=== PATIENT | male | born 1970 | race Caucasian/White ===

== ENCOUNTER 2018-11-15 06:00 | Emergency (ER) | payer OTHER, SELFPAY ==
[2018-11-15 05:58] VITALS: BP 170/102; PULSE 77; RESP 15; TEMP 36.7; O2SAT 98; BMI 25.8
--- NOTE | 2018-11-15 06:05 | DI.CT.S_ITS ---
PROCEDURE: CT HEAD/BRAIN WO CON INDICATIONS: headache ,blurry vision ,ataxia TECHNIQUE: Noncontrast 4.5 mm thick angled axial sections acquired from the foramen magnum to the vertex, with coronal and sagittal reformats. For radiation dose reduction, the following was used: automated exposure control, adjustment of mA and/or kV according to patient size. COMPARISON: None. FINDINGS: Image quality: Excellent. CSF spaces: Basal cisterns are patent. No extra-axial fluid collections. Ventricles are normal in size and shape. Brain: No midline shift. No intracranial masses or hemorrhage. [place]-white matter interface is normal. Skull and face: Calvarium and visualized facial bones are intact, without suspicious lesions. Sinuses: Visualized sinuses and mastoids are clear. IMPRESSION: 1. No acute intracranial abnormalities. No significant discrepancy with the stable hand radiology preliminary report. Dictated by: Matthieu Waite M.D. on 11/15/2018 at 7:43 Approved by: Matthieu Waite M.D. on 11/15/2018 at 7:45
[2018-11-15 06:19] LABS: INR 0.9 (0.9-1.3); Prothrombin Time 10.8 SECONDS (10.1-12.7)
[2018-11-15 06:21] LABS: PTT Partial Thromboplastin Tim 32 SECONDS (26.4-36.2)
[2018-11-15 06:23] LABS: Add Manual Diff / Slide Review NO; Basophils Absolute Auto 100 /uL (0-100); Basophils Percent Auto 0.8 % (0-2); Eosinophils Absolute Auto 100 /uL (0-450); Hematocrit 44.9 % (41-53); Hemoglobin 15.7 g/dL (13.5-17.5); Lymphocytes Absolute Auto 2200 /uL (1100-4500); Lymphocytes Percent Auto 25.1 % (25-40); Mean Corpuscular Volume 88.6 fL (80-100); Monocytes Absolute Auto 600 /uL (0-900); Monocytes Percent Auto 6.9 % (3-14); Neutrophils Absolute Auto 5800 /uL (1500-7000); Neutrophils Percent Auto 66.2 % (50-75); Platelet Count 254 X10^3/uL (150-400); Red Blood Cell Count 5.07 X10^6/uL (4.5-5.9); Red Cell Distribution Width 13.4 % (11.6-14.8); White Blood Cell Count 8.8 X10^3/uL (4.5-11.0)
[2018-11-15] MEDS: SODIUM CHLORIDE 0.9% 1,000 ML 1000 ML IV (06:26)
[2018-11-15] MEDS: KETOROLAC 60 MG/2 ML VIAL 30 MG IV (06:26)
[2018-11-15] MEDS: ONDANSETRON 4 MG/2 ML INJ IV (06:26)
[2018-11-15 06:32] LABS: Alanine Aminotransferase 24 IU/L (21-72); Albumin 4.4 g/dL (3.5-5.0); Albumin Globulin Ratio 1.4 (1.0-2.8); Alkaline Phosphatase 66 U/L (38-126); Aspartate Aminotransferase 20 IU/L (17-59); BUN Creatinine Ratio 17.8 (6-22); Bilirubin Total 0.5 mg/dL (0.2-1.3); Blood Urea Nitrogen 16 mg/dL (9-20); Calcium 9.3 mg/dL (8.4-10.2); Carbon Dioxide 27 mmol/L (22-32); Chloride 99 mmol/L (98-107); Estimated Glomerular Filt Rate > 60.0 mL/min (>60); Ethanol (ETOH) < 10 mg/dL; Globulin 3.2 g/dL (1.7-4.1); Glucose 128 mg/dL (70-100); HEMOLYSIS 30 (0-50); Potassium 4.2 mmol/L (3.4-5.1); Sodium 136 mmol/L (137-145); Total Protein 7.6 g/dL (6.3-8.2)
--- NOTE | 2018-11-15 06:42 | ED.GENADULT ---
HPI - General Adult <Simi Hirsch DO - Last Filed: 11/15/18 21:20> General Chief complaint: Hypertension Stated complaint: Blurred vision Time Seen by Provider: 11/15/18 06:03 Source: patient and EMS Mode of arrival: EMS Limitations: no limitations History of Present Illness HPI narrative: The patient is a 47-year-old male who presents with headache and blurred vision. [place] he was having some vision difficulties. EMS initially reported blood pressure the systolic in the 200. Patient does state that he has hypertension. He is not sure what medication he takes but he thinks he took it yesterday but has not yet taken today's dose. He said this headache started while he was at a machine he thinks he was sitting at that machine for about an hour. He has not been up all night. He does admit to having 2 drinks of alcohol yesterday and he stopped drinking at 4:00 p.m.. He does seem to be a bit unsteady on his feet. He also admits that he may have smoked methamphetamine yesterday as well. He had some weakness in both arms but he thinks that that is improving. No numbness or tingling. Related Data Allergies Allergy/AdvReac Type Severity Reaction Status Date / Time Iodinated Contrast- Oral and Allergy Verified 11/15/18 06:49 IV Dye gabapentin [From Neurontin] AdvReac Verified 11/15/18 06:49 Review of Systems <Simi Hirsch DO - Last Filed: 11/15/18 21:20> Review of Systems ROS Unobtainable: All systems reviewed & are unremarkable except as noted in HPI and below Constitutional Denies chills, Denies fever(s), Reports headache(s), Denies lethargy and Denies weakness Eyes Reports blurry vision ENT Ears, Nose, Mouth, and Throat: Denies dizziness and Reports headache(s) Cardiovascular Denies chest pain, Denies irregular heart rhythm, Denies lightheadedness, Denies palpitations, Denies dyspnea, Denies dyspnea on exertion and Denies orthopnea Respiratory Denies cough, Denies dyspnea, Denies dyspnea on exertion and Denies wheezing Gastrointestinal Gastrointestinal: Denies abdominal pain, Denies change in bowel habits, Denies diarrhea, Denies nausea and Denies vomiting Musculoskeletal Denies back pain, Denies muscle weakness, Denies numbness and Denies tingling Integumentary/Breasts Denies pruritus, Denies erythema, Denies rash and Denies wounds Neurologic Denies dizziness, Reports headache(s), Denies numbness, Denies tingling and Denies weakness Endocrine Denies palpitations Allergic/Immunologic Denies wheezing Exam <Simi Hirsch DO - Last Filed: 11/15/18 21:20> Initial Vital Signs Initial Vital Signs: Vital Signs Temperature 98.1 F 11/15/18 05:58 Pulse Rate 77 11/15/18 05:58 Respiratory Rate 15 11/15/18 05:58 Blood Pressure 170/102 H 11/15/18 05:58 Pulse Oximetry 98 11/15/18 05:58 GENERAL: Well-appearing, well-nourished and in no acute distress. HEENT: Head atraumatic,EOMI, pupils reactive, face symmetric CARDIOVASCULAR: Regular rate and rhythm without murmurs, rubs or gallops. RESPIRATORY: Breath sounds equal bilaterally, no wheezes rales or rhonchi. ABDOMEN: Soft, nontender. Normoactive bowel sounds all 4 quadrants. No guarding or rebound. EXTREMITIES: Normal range of motion, no clubbing or edema. Neurovascularly intact NEUROLOGICAL: Alert and oriented x4.Normal gait and speech. Cranial nerves II through XII grossly intact. Specimen Boss strength equal bilaterally some ataxia noted in left arm but no other extremities. SKIN: Warm, dry, no laceration, no petechiae, no rashes or lesions. <Xander Cristina, DO - Last Filed: 11/15/18 07:52> Initial Vital Signs Initial Vital Signs: Vital Signs Temperature 98.1 F 11/15/18 05:58 Pulse Rate 77 11/15/18 05:58 Respiratory Rate 15 11/15/18 05:58 Blood Pressure 170/102 H 11/15/18 05:58 Pulse Oximetry 98 11/15/18 05:58 Scores <Simi Hirsch DO - Last Filed: 11/15/18 21:20> NIH Stroke Scale Level of Conciousness: Alert, keenly responsive Ask month/age: Answers both questions correctly. Open/close eyes, close hand: Performs both tasks correctly Best gaze horizontal: Normal Visual uriostegui: No visual loss Facial palsy: Normal symetrical movement Left arm drift: No drift for full 10 sec Right arm drift: No drift for full 10 sec Left leg drift: No drift for full 10 sec Right leg drift: No drift for full 10 sec Limb ataxia: Absent Sensory on face/arms/legs: Normal, no sensory loss Best language: No aphasia, normal Dysarthria: Normal Extinction or inattention: No abnormality Total NIH Stroke scale score: 0 Course <Simi Hirsch DO - Last Filed: 11/15/18 21:20> Orders Ordered: Discontinued Medications Sodium Chloride (Normal Saline 0.9%) 1,000 mls @ 1,000 mls/hr IV CONT DANO Last Infusion: 11/15/18 07:47 Dose: 0 mls/hr Admin: 11/15/18 06:26 Dose: 1,000 mls/hr Ketorolac Tromethamine (Toradol) 30 mg IV NOW ONE Stop: 11/15/18 06:14 Last Admin: 11/15/18 06:26 Dose: 30 mg Lisinopril (Zestril) 10 mg PO NOW ONE Stop: 11/15/18 06:59 Last Admin: 11/15/18 07:28 Dose: 10 mg Ondansetron HCl (Zofran) 4 mg IV NOW ONE Stop: 11/15/18 06:05 Last Admin: 11/15/18 06:26 Dose: 4 mg Vital Signs - 8 hr 11/15/18 05:58 11/15/18 06:43 11/15/18 07:28 Temperature 98.1 F Pulse Rate 77 81 74 Respiratory Rate 15 15 Blood Pressure 170/102 H 146/100 H Blood Pressure [Right Arm] 166/104 H Pulse Oximetry 98 100 <Xander Cristina DO - Last Filed: 11/15/18 07:52> Orders Ordered: Discontinued Medications Sodium Chloride (Normal Saline 0.9%) 1,000 mls @ 1,000 mls/hr IV CONT DANO Last Infusion: 11/15/18 07:47 Dose: 0 mls/hr Admin: 11/15/18 06:26 Dose: 1,000 mls/hr Ketorolac Tromethamine (Toradol) 30 mg IV NOW ONE Stop: 11/15/18 06:14 Last Admin: 11/15/18 06:26 Dose: 30 mg Lisinopril (Zestril) 10 mg PO NOW ONE Stop: 11/15/18 06:59 Last Admin: 11/15/18 07:28 Dose: 10 mg Ondansetron HCl (Zofran) 4 mg IV NOW ONE Stop: 11/15/18 06:05 Last Admin: 11/15/18 06:26 Dose: 4 mg Vital Signs - 8 hr 11/15/18 05:58 11/15/18 06:43 11/15/18 07:28 Temperature 98.1 F Pulse Rate 77 81 74 Respiratory Rate 15 15 Blood Pressure 170/102 H 146/100 H Blood Pressure [Right Arm] 166/104 H Pulse Oximetry 98 100 Medical Decision Making <Simi Hirsch, - Last Filed: 11/15/18 21:20> Lab Data Lab results reviewed: Yes I reviewed the patient's lab results. Result diagrams: 11/15/18 05:50 11/15/18 05:50 Lab Results 11/15/18 11/15/18 11/15/18 Range/Units 05:50 05:50 05:50 WBC 8.8 (4.5-11.0) X10^3/uL RBC 5.07 (4.5-5.9) X10^6/uL Hgb 15.7 (13.5-17.5) g/dL Hct 44.9 (41-53) % MCV 88.6 (80-100) fL MCH 31.0 (26-34) PG MCHC 35.0 (30-36) % RDW 13.4 (11.6-14.8) % Plt Count 254 (150-400) X10^3/uL Neut % (Auto) 66.2 (50-75) % Lymph % (Auto) 25.1 (25-40) % [place] % (Auto) 6.9 (3-14) % Eos % (Auto) 1.0 L (2-4) % Baso % (Auto) 0.8 (0-2) % Neut # (Auto) 5800 (4278-3207) /uL Lymph # (Auto) 2200 (9855-3514) /uL [place] # (Auto) 600 (0-900) /uL Eos # (Auto) 100 (0-450) /uL Baso # (Auto) 100 (0-100) /uL PT 10.8 (10.1-12.7) SECONDS INR 0.9 (0.9-1.3) APTT 32 (26.4-36.2) SECONDS Sodium 136 L (137-145) mmol/L Potassium 4.2 (3.4-5.1) mmol/L Chloride 99 (98-107) mmol/L Carbon Dioxide 27 (22-32) mmol/L BUN 16 (9-20) mg/dL Creatinine 0.90 (0.66-1.25) mg/dL Estimated GFR > 60.0 (>60) mL/min BUN/Creatinine Ratio 17.8 (6-22) Glucose 128 H (70-100) mg/dL Calcium 9.3 (8.4-10.2) mg/dL Total Bilirubin 0.5 (0.2-1.3) mg/dL AST 20 (17-59) IU/L ALT 24 (21-72) IU/L Alkaline Phosphatase 66 (38-126) U/L Total Protein 7.6 (6.3-8.2) g/dL Albumin 4.4 (3.5-5.0) g/dL Globulin 3.2 (1.7-4.1) g/dL Albumin/Globulin Ratio 1.4 (1.0-2.8) Urine RBC (0-5/HPF) Urine WBC (0-5/HPF) Urine Bacteria (None) Ur Culture Indicated? Urine Opiates Screen (Negative) Ur Oxycodone Screen (Negative) Urine Methadone Screen (Negative) Ur Barbiturates Screen (Negative) U Tricyclic Antidepress (Negative) Ur Phencyclidine Scrn (Negative) Ur Amphetamines Screen (Negative) U Methamphetamines Scrn (Negative) Ur MDMA Scrn (Ecstasy) (Negative) U Benzodiazepines Scrn (Negative) Urine Cocaine Screen (Negative) U Marijuana (THC) Screen (Negative) Ethyl Alcohol < 10 mg/dL 11/15/18 11/15/18 Range/Units 06:42 06:42 WBC (4.5-11.0) X10^3/uL RBC (4.5-5.9) X10^6/uL Hgb (13.5-17.5) g/dL Hct (41-53) % MCV (80-100) fL MCH (26-34) PG MCHC (30-36) % RDW (11.6-14.8) % Plt Count (150-400) X10^3/uL Neut % (Auto) (50-75) % Lymph % (Auto) (25-40) % [place] % (Auto) (3-14) % Eos % (Auto) (2-4) % Baso % (Auto) (0-2) % Neut # (Auto) (2264-6533) /uL Lymph # (Auto) (5683-6212) /uL [place] # (Auto) (0-900) /uL Eos # (Auto) (0-450) /uL Baso # (Auto) (0-100) /uL PT (10.1-12.7) SECONDS INR (0.9-1.3) APTT (26.4-36.2) SECONDS Sodium (137-145) mmol/L Potassium (3.4-5.1) mmol/L Chloride (98-107) mmol/L Carbon Dioxide (22-32) mmol/L BUN (9-20) mg/dL Creatinine (0.66-1.25) mg/dL Estimated GFR (>60) mL/min BUN/Creatinine Ratio (6-22) Glucose (70-100) mg/dL Calcium (8.4-10.2) mg/dL Total Bilirubin (0.2-1.3) mg/dL AST (17-59) IU/L ALT (21-72) IU/L Alkaline Phosphatase (38-126) U/L Total Protein (6.3-8.2) g/dL Albumin (3.5-5.0) g/dL Globulin (1.7-4.1) g/dL Albumin/Globulin Ratio (1.0-2.8) Urine RBC 0-1/hpf (0-5/HPF) Urine WBC 0-1/hpf (0-5/HPF) Urine Bacteria Occasional (0-1) (None) Ur Culture Indicated? Cult not indicated Urine Opiates Screen Negative (Negative) Ur Oxycodone Screen Negative (Negative) Urine Methadone Screen Negative (Negative) Ur Barbiturates Screen Negative (Negative) U Tricyclic Antidepress Negative (Negative) Ur Phencyclidine Scrn Negative (Negative) Ur Amphetamines Screen Positive H (Negative) U Methamphetamines Scrn Positive H (Negative) Ur MDMA Scrn (Ecstasy) Negative (Negative) U Benzodiazepines Scrn Negative (Negative) Urine Cocaine Screen Negative (Negative) U Marijuana (THC) Screen Negative (Negative) Ethyl Alcohol mg/dL Urine Dip Bedside Urine Glucose Negative Bedside Urine Bilirubin - Negative Bedside Urine Ketone - Negative Urine Specific [place] 1.015 Bedside Urine Occult Blood +/- Bedside Urine pH 6.0 Bedside Urine Protein - Negative Bedside Urine Urobilinogen - Negative Bedside Urine Nitrite - Negative Bedside Urine Leukocytes - Negative Esterase Point of care testing: Urine Dip Bedside Urine Glucose Negative Bedside Urine Bilirubin - Negative Bedside Urine Ketone - Negative Urine Specific [place] 1.015 Bedside Urine Occult Blood +/- Bedside Urine pH 6.0 Bedside Urine Protein - Negative Bedside Urine Urobilinogen - Negative Bedside Urine Nitrite - Negative Bedside Urine Leukocytes - Negative Esterase Imaging Data CT scan - head: Radiologist's impression: Patient report: No acute intracranial process ECG Data Attestation: I personally reviewed and interpreted this ECG as follows: Prior ECG tracings: not available for review Interpretation: Normal sinus rhythm rate [address] changes no T-wave inversions MDM Narrative Medical decision making narrative: The patient headache is improving. Vision is also improving. Blood pressure has improved from EMS initial blood pressure however it is still elevated. He is due for his morning lisinopril. signed out to day shift provider anticipate discharge soon. <Xander Cristina, DO - Last Filed: 11/15/18 07:52> Lab Data Lab results reviewed: Yes I reviewed the patient's lab results. Lab Results 11/15/18 11/15/18 11/15/18 Range/Units 05:50 05:50 05:50 WBC 8.8 (4.5-11.0) X10^3/uL RBC 5.07 (4.5-5.9) X10^6/uL Hgb 15.7 (13.5-17.5) g/dL Hct 44.9 (41-53) % MCV 88.6 (80-100) fL MCH 31.0 (26-34) PG MCHC 35.0 (30-36) % RDW 13.4 (11.6-14.8) % Plt Count 254 (150-400) X10^3/uL Neut % (Auto) 66.2 (50-75) % Lymph % (Auto) 25.1 (25-40) % [place] % (Auto) 6.9 (3-14) % Eos % (Auto) 1.0 L (2-4) % Baso % (Auto) 0.8 (0-2) % Neut # (Auto) 5800 (1545-9253) /uL Lymph # (Auto) 2200 (2517-9369) /uL [place] # (Auto) 600 (0-900) /uL Eos # (Auto) 100 (0-450) /uL Baso # (Auto) 100 (0-100) /uL PT 10.8 (10.1-12.7) SECONDS INR 0.9 (0.9-1.3) APTT 32 (26.4-36.2) SECONDS Sodium 136 L (137-145) mmol/L Potassium 4.2 (3.4-5.1) mmol/L Chloride 99 (98-107) mmol/L Carbon Dioxide 27 (22-32) mmol/L BUN 16 (9-20) mg/dL Creatinine 0.90 (0.66-1.25) mg/dL Estimated GFR > 60.0 (>60) mL/min BUN/Creatinine Ratio 17.8 (6-22) Glucose 128 H (70-100) mg/dL Calcium 9.3 (8.4-10.2) mg/dL Total Bilirubin 0.5 (0.2-1.3) mg/dL AST 20 (17-59) IU/L ALT 24 (21-72) IU/L Alkaline Phosphatase 66 (38-126) U/L Total Protein 7.6 (6.3-8.2) g/dL Albumin 4.4 (3.5-5.0) g/dL Globulin 3.2 (1.7-4.1) g/dL Albumin/Globulin Ratio 1.4 (1.0-2.8) Urine RBC (0-5/HPF) Urine WBC (0-5/HPF) Urine Bacteria (None) Ur Culture Indicated? Urine Opiates Screen (Negative) Ur Oxycodone Screen (Negative) Urine Methadone Screen (Negative) Ur Barbiturates Screen (Negative) U Tricyclic Antidepress (Negative) Ur Phencyclidine Scrn (Negative) Ur Amphetamines Screen (Negative) U Methamphetamines Scrn (Negative) Ur MDMA Scrn (Ecstasy) (Negative) U Benzodiazepines Scrn (Negative) Urine Cocaine Screen (Negative) U Marijuana (THC) Screen (Negative) Ethyl Alcohol < 10 mg/dL 11/15/18 11/15/18 Range/Units 06:42 06:42 WBC (4.5-11.0) X10^3/uL RBC (4.5-5.9) X10^6/uL Hgb (13.5-17.5) g/dL Hct (41-53) % MCV (80-100) fL MCH (26-34) PG MCHC (30-36) % RDW (11.6-14.8) % Plt Count (150-400) X10^3/uL Neut % (Auto) (50-75) % Lymph % (Auto) (25-40) % [place] % (Auto) (3-14) % Eos % (Auto) (2-4) % Baso % (Auto) (0-2) % Neut # (Auto) (9888-3501) /uL Lymph # (Auto) (1115-0621) /uL [place] # (Auto) (0-900) /uL Eos # (Auto) (0-450) /uL Baso # (Auto) (0-100) /uL PT (10.1-12.7) SECONDS INR (0.9-1.3) APTT (26.4-36.2) SECONDS Sodium (137-145) mmol/L Potassium (3.4-5.1) mmol/L Chloride (98-107) mmol/L Carbon Dioxide (22-32) mmol/L BUN (9-20) mg/dL Creatinine (0.66-1.25) mg/dL Estimated GFR (>60) mL/min BUN/Creatinine Ratio (6-22) Glucose (70-100) mg/dL Calcium (8.4-10.2) mg/dL Total Bilirubin (0.2-1.3) mg/dL AST (17-59) IU/L ALT (21-72) IU/L Alkaline Phosphatase (38-126) U/L Total Protein (6.3-8.2) g/dL Albumin (3.5-5.0) g/dL Globulin (1.7-4.1) g/dL Albumin/Globulin Ratio (1.0-2.8) Urine RBC 0-1/hpf (0-5/HPF) Urine WBC 0-1/hpf (0-5/HPF) Urine Bacteria Occasional (0-1) (None) Ur Culture Indicated? Cult not indicated Urine Opiates Screen Negative (Negative) Ur Oxycodone Screen Negative (Negative) Urine Methadone Screen Negative (Negative) Ur Barbiturates Screen Negative (Negative) U Tricyclic Antidepress Negative (Negative) Ur Phencyclidine Scrn Negative (Negative) Ur Amphetamines Screen Positive H (Negative) U Methamphetamines Scrn Positive H (Negative) Ur MDMA Scrn (Ecstasy) Negative (Negative) U Benzodiazepines Scrn Negative (Negative) Urine Cocaine Screen Negative (Negative) U Marijuana (THC) Screen Negative (Negative) Ethyl Alcohol mg/dL Urine Dip Bedside Urine Glucose Negative Bedside Urine Bilirubin - Negative Bedside Urine Ketone - Negative Urine Specific [place] 1.015 Bedside Urine Occult Blood +/- Bedside Urine pH 6.0 Bedside Urine Protein - Negative Bedside Urine Urobilinogen - Negative Bedside Urine Nitrite - Negative Bedside Urine Leukocytes - Negative Esterase Point of care testing: Urine Dip Bedside Urine Glucose Negative Bedside Urine Bilirubin - Negative Bedside Urine Ketone - Negative Urine Specific [place] 1.015 Bedside Urine Occult Blood +/- Bedside Urine pH 6.0 Bedside Urine Protein - Negative Bedside Urine Urobilinogen - Negative Bedside Urine Nitrite - Negative Bedside Urine Leukocytes - Negative Esterase MDM Narrative Medical decision making narrative: Review patient's medical record. Perform my own history and physical. Patient reports a much improvement in his symptoms. He did receive lisinopril here in the emergency department. We had a discussion about blood pressure. He does have a follow-up with his primary doctor at the end of this month. We discussed the importance of taking his blood pressure at home. We discussed return precautions. Did not find any end-organ dysfunction secondary to his elevated pressure. Patient expressed understanding and agreement plan. Discharge Plan Departure Patient Disposition: Home Clinical Impression: Hypertension, Headache Discharge Date/Time: 11/15/18 08:10 Interventions: ED Discharge Assessment Last Done: 11/15/18 08:10 Activity Restrictions/Additional Instructions: *You have been diagnosed with hypertension, headache *What to do: May need blood pressure medication adjustment of please discuss this with her primary care provider *Continue to take medications as directed *Follow up with your primary care provider in 2-3 days *Return to ER if you should have weakness, numbness, tingling or any new, worsening or concerning symptoms
[2018-11-15 06:43] VITALS: BP 166/104; PULSE 81; RESP 15; O2SAT 100
--- NOTE | 2018-11-15 06:46 | ED_ITS ---
HPI - General Adult <Simi Hirsch DO - Last Filed: 11/15/18 21:20> General Chief complaint: Hypertension Stated complaint: Blurred vision Time Seen by Provider: 11/15/18 06:03 Source: patient and EMS Mode of arrival: EMS Limitations: no limitations History of Present Illness HPI narrative: The patient is a 47-year-old male who presents with headache and blurred vision. [place] he was having some vision difficulties. EMS initially reported blood pressure the systolic in the 200. Patient does state that he has hypertension. He is not sure what medication he takes but he thinks he took it yesterday but has not yet taken today's dose. He said this headache started while he was at a machine he thinks he was sitting at that machine for about an hour. He has not been up all night. He does admit to having 2 drinks of alcohol yesterday and he stopped drinking at 4:00 p.m.. He does seem to be a bit unsteady on his feet. He also admits that he may have smoked methamphetamine yesterday as well. He had some weakness in both arms but he thinks that that is improving. No numbness or tingling. Related Data Allergies Allergy/AdvReac Type Severity Reaction Status Date / Time Iodinated Contrast- Oral and Allergy Verified 11/15/18 06:49 IV Dye gabapentin [From Neurontin] AdvReac Verified 11/15/18 06:49 Review of Systems <Simi Hirsch DO - Last Filed: 11/15/18 21:20> Review of Systems ROS Unobtainable: All systems reviewed & are unremarkable except as noted in HPI and below Constitutional Denies chills, Denies fever(s), Reports headache(s), Denies lethargy and Denies weakness Eyes Reports blurry vision ENT Ears, Nose, Mouth, and Throat: Denies dizziness and Reports headache(s) Cardiovascular Denies chest pain, Denies irregular heart rhythm, Denies lightheadedness, Denies palpitations, Denies dyspnea, Denies dyspnea on exertion and Denies orthopnea Respiratory Denies cough, Denies dyspnea, Denies dyspnea on exertion and Denies wheezing Gastrointestinal Gastrointestinal: Denies abdominal pain, Denies change in bowel habits, Denies diarrhea, Denies nausea and Denies vomiting Musculoskeletal Denies back pain, Denies muscle weakness, Denies numbness and Denies tingling Integumentary/Breasts Denies pruritus, Denies erythema, Denies rash and Denies wounds Neurologic Denies dizziness, Reports headache(s), Denies numbness, Denies tingling and Denies weakness Endocrine Denies palpitations Allergic/Immunologic Denies wheezing Exam <Simi Hirsch DO - Last Filed: 11/15/18 21:20> Initial Vital Signs Initial Vital Signs: Vital Signs Temperature 98.1 F 11/15/18 05:58 Pulse Rate 77 11/15/18 05:58 Respiratory Rate 15 11/15/18 05:58 Blood Pressure 170/102 H 11/15/18 05:58 Pulse Oximetry 98 11/15/18 05:58 GENERAL: Well-appearing, well-nourished and in no acute distress. HEENT: Head atraumatic,EOMI, pupils reactive, face symmetric CARDIOVASCULAR: Regular rate and rhythm without murmurs, rubs or gallops. RESPIRATORY: Breath sounds equal bilaterally, no wheezes rales or rhonchi. ABDOMEN: Soft, nontender. Normoactive bowel sounds all 4 quadrants. No guarding or rebound. EXTREMITIES: Normal range of motion, no clubbing or edema. Neurovascularly intact NEUROLOGICAL: Alert and oriented x4.Normal gait and speech. Cranial nerves II through XII grossly intact. [employer] strength equal bilaterally some ataxia noted in left arm but no other extremities. SKIN: Warm, dry, no laceration, no petechiae, no rashes or lesions. <Xander Cristina, DO - Last Filed: 11/15/18 07:52> Initial Vital Signs Initial Vital Signs: Vital Signs Temperature 98.1 F 11/15/18 05:58 Pulse Rate 77 11/15/18 05:58 Respiratory Rate 15 11/15/18 05:58 Blood Pressure 170/102 H 11/15/18 05:58 Pulse Oximetry 98 11/15/18 05:58 Scores <Simi Hirsch DO - Last Filed: 11/15/18 21:20> NIH Stroke Scale Level of Conciousness: Alert, keenly responsive Ask month/age: Answers both questions correctly. Open/close eyes, close hand: Performs both tasks correctly Best gaze horizontal: Normal Visual uriostegui: No visual loss Facial palsy: Normal symetrical movement Left arm drift: No drift for full 10 sec Right arm drift: No drift for full 10 sec Left leg drift: No drift for full 10 sec Right leg drift: No drift for full 10 sec Limb ataxia: Absent Sensory on face/arms/legs: Normal, no sensory loss Best language: No aphasia, normal Dysarthria: Normal Extinction or inattention: No abnormality Total NIH Stroke scale score: 0 Course <Simi Hirsch DO - Last Filed: 11/15/18 21:20> Orders Ordered: Discontinued Medications Sodium Chloride (Normal Saline 0.9%) 1,000 mls @ 1,000 mls/hr IV CONT DANO Last Infusion: 11/15/18 07:47 Dose: 0 mls/hr Admin: 11/15/18 06:26 Dose: 1,000 mls/hr Ketorolac Tromethamine (Toradol) 30 mg IV NOW ONE Stop: 11/15/18 06:14 Last Admin: 11/15/18 06:26 Dose: 30 mg Lisinopril (Zestril) 10 mg PO NOW ONE Stop: 11/15/18 06:59 Last Admin: 11/15/18 07:28 Dose: 10 mg Ondansetron HCl (Zofran) 4 mg IV NOW ONE Stop: 11/15/18 06:05 Last Admin: 11/15/18 06:26 Dose: 4 mg Vital Signs - 8 hr 11/15/18 05:58 11/15/18 06:43 11/15/18 07:28 Temperature 98.1 F Pulse Rate 77 81 74 Respiratory Rate 15 15 Blood Pressure 170/102 H 146/100 H Blood Pressure [Right Arm] 166/104 H Pulse Oximetry 98 100 <Xander Cristina DO - Last Filed: 11/15/18 07:52> Orders Ordered: Discontinued Medications Sodium Chloride (Normal Saline 0.9%) 1,000 mls @ 1,000 mls/hr IV CONT DANO Last Infusion: 11/15/18 07:47 Dose: 0 mls/hr Admin: 11/15/18 06:26 Dose: 1,000 mls/hr Ketorolac Tromethamine (Toradol) 30 mg IV NOW ONE Stop: 11/15/18 06:14 Last Admin: 11/15/18 06:26 Dose: 30 mg Lisinopril (Zestril) 10 mg PO NOW ONE Stop: 11/15/18 06:59 Last Admin: 11/15/18 07:28 Dose: 10 mg Ondansetron HCl (Zofran) 4 mg IV NOW ONE Stop: 11/15/18 06:05 Last Admin: 11/15/18 06:26 Dose: 4 mg Vital Signs - 8 hr 11/15/18 05:58 11/15/18 06:43 11/15/18 07:28 Temperature 98.1 F Pulse Rate 77 81 74 Respiratory Rate 15 15 Blood Pressure 170/102 H 146/100 H Blood Pressure [Right Arm] 166/104 H Pulse Oximetry 98 100 Medical Decision Making <Simi Hirsch, - Last Filed: 11/15/18 21:20> Lab Data Lab results reviewed: Yes I reviewed the patient's lab results. Result diagrams: 11/15/18 05:50 11/15/18 05:50 Lab Results 11/15/18 11/15/18 11/15/18 Range/Units 05:50 05:50 05:50 WBC 8.8 (4.5-11.0) X10^3/uL RBC 5.07 (4.5-5.9) X10^6/uL Hgb 15.7 (13.5-17.5) g/dL Hct 44.9 (41-53) % MCV 88.6 (80-100) fL MCH 31.0 (26-34) PG MCHC 35.0 (30-36) % RDW 13.4 (11.6-14.8) % Plt Count 254 (150-400) X10^3/uL Neut % (Auto) 66.2 (50-75) % Lymph % (Auto) 25.1 (25-40) % [place] % (Auto) 6.9 (3-14) % Eos % (Auto) 1.0 L (2-4) % Baso % (Auto) 0.8 (0-2) % Neut # (Auto) 5800 (4190-2916) /uL Lymph # (Auto) 2200 (1006-3983) /uL [place] # (Auto) 600 (0-900) /uL Eos # (Auto) 100 (0-450) /uL Baso # (Auto) 100 (0-100) /uL PT 10.8 (10.1-12.7) SECONDS INR 0.9 (0.9-1.3) APTT 32 (26.4-36.2) SECONDS Sodium 136 L (137-145) mmol/L Potassium 4.2 (3.4-5.1) mmol/L Chloride 99 (98-107) mmol/L Carbon Dioxide 27 (22-32) mmol/L BUN 16 (9-20) mg/dL Creatinine 0.90 (0.66-1.25) mg/dL Estimated GFR > 60.0 (>60) mL/min BUN/Creatinine Ratio 17.8 (6-22) Glucose 128 H (70-100) mg/dL Calcium 9.3 (8.4-10.2) mg/dL Total Bilirubin 0.5 (0.2-1.3) mg/dL AST 20 (17-59) IU/L ALT 24 (21-72) IU/L Alkaline Phosphatase 66 (38-126) U/L Total Protein 7.6 (6.3-8.2) g/dL Albumin 4.4 (3.5-5.0) g/dL Globulin 3.2 (1.7-4.1) g/dL Albumin/Globulin Ratio 1.4 (1.0-2.8) Urine RBC (0-5/HPF) Urine WBC (0-5/HPF) Urine Bacteria (None) Ur Culture Indicated? Urine Opiates Screen (Negative) Ur Oxycodone Screen (Negative) Urine Methadone Screen (Negative) Ur Barbiturates Screen (Negative) U Tricyclic Antidepress (Negative) Ur Phencyclidine Scrn (Negative) Ur Amphetamines Screen (Negative) U Methamphetamines Scrn (Negative) Ur MDMA Scrn (Ecstasy) (Negative) U Benzodiazepines Scrn (Negative) Urine Cocaine Screen (Negative) U Marijuana (THC) Screen (Negative) Ethyl Alcohol < 10 mg/dL 11/15/18 11/15/18 Range/Units 06:42 06:42 WBC (4.5-11.0) X10^3/uL RBC (4.5-5.9) X10^6/uL Hgb (13.5-17.5) g/dL Hct (41-53) % MCV (80-100) fL MCH (26-34) PG MCHC (30-36) % RDW (11.6-14.8) % Plt Count (150-400) X10^3/uL Neut % (Auto) (50-75) % Lymph % (Auto) (25-40) % [place] % (Auto) (3-14) % Eos % (Auto) (2-4) % Baso % (Auto) (0-2) % Neut # (Auto) (3509-4418) /uL Lymph # (Auto) (7055-6787) /uL [place] # (Auto) (0-900) /uL Eos # (Auto) (0-450) /uL Baso # (Auto) (0-100) /uL PT (10.1-12.7) SECONDS INR (0.9-1.3) APTT (26.4-36.2) SECONDS Sodium (137-145) mmol/L Potassium (3.4-5.1) mmol/L Chloride (98-107) mmol/L Carbon Dioxide (22-32) mmol/L BUN (9-20) mg/dL Creatinine (0.66-1.25) mg/dL Estimated GFR (>60) mL/min BUN/Creatinine Ratio (6-22) Glucose (70-100) mg/dL Calcium (8.4-10.2) mg/dL Total Bilirubin (0.2-1.3) mg/dL AST (17-59) IU/L ALT (21-72) IU/L Alkaline Phosphatase (38-126) U/L Total Protein (6.3-8.2) g/dL Albumin (3.5-5.0) g/dL Globulin (1.7-4.1) g/dL Albumin/Globulin Ratio (1.0-2.8) Urine RBC 0-1/hpf (0-5/HPF) Urine WBC 0-1/hpf (0-5/HPF) Urine Bacteria Occasional (0-1) (None) Ur Culture Indicated? Cult not indicated Urine Opiates Screen Negative (Negative) Ur Oxycodone Screen Negative (Negative) Urine Methadone Screen Negative (Negative) Ur Barbiturates Screen Negative (Negative) U Tricyclic Antidepress Negative (Negative) Ur Phencyclidine Scrn Negative (Negative) Ur Amphetamines Screen Positive H (Negative) U Methamphetamines Scrn Positive H (Negative) Ur MDMA Scrn (Ecstasy) Negative (Negative) U Benzodiazepines Scrn Negative (Negative) Urine Cocaine Screen Negative (Negative) U Marijuana (THC) Screen Negative (Negative) Ethyl Alcohol mg/dL Urine Dip Bedside Urine Glucose Negative Bedside Urine Bilirubin - Negative Bedside Urine Ketone - Negative Urine Specific [place] 1.015 Bedside Urine Occult Blood +/- Bedside Urine pH 6.0 Bedside Urine Protein - Negative Bedside Urine Urobilinogen - Negative Bedside Urine Nitrite - Negative Bedside Urine Leukocytes - Negative Esterase Point of care testing: Urine Dip Bedside Urine Glucose Negative Bedside Urine Bilirubin - Negative Bedside Urine Ketone - Negative Urine Specific [place] 1.015 Bedside Urine Occult Blood +/- Bedside Urine pH 6.0 Bedside Urine Protein - Negative Bedside Urine Urobilinogen - Negative Bedside Urine Nitrite - Negative Bedside Urine Leukocytes - Negative Esterase Imaging Data CT scan - head: Radiologist's impression: Patient report: No acute intracranial process ECG Data Attestation: I personally reviewed and interpreted this ECG as follows: Prior ECG tracings: not available for review Interpretation: Normal sinus rhythm rate [address] changes no T-wave inversions MDM Narrative Medical decision making narrative: The patient headache is improving. Vision is also improving. Blood pressure has improved from EMS initial blood pressure however it is still elevated. He is due for his morning lisinopril. signed out to day shift provider anticipate discharge soon. <Xander Cristina, DO - Last Filed: 11/15/18 07:52> Lab Data Lab results reviewed: Yes I reviewed the patient's lab results. Lab Results 11/15/18 11/15/18 11/15/18 Range/Units 05:50 05:50 05:50 WBC 8.8 (4.5-11.0) X10^3/uL RBC 5.07 (4.5-5.9) X10^6/uL Hgb 15.7 (13.5-17.5) g/dL Hct 44.9 (41-53) % MCV 88.6 (80-100) fL MCH 31.0 (26-34) PG MCHC 35.0 (30-36) % RDW 13.4 (11.6-14.8) % Plt Count 254 (150-400) X10^3/uL Neut % (Auto) 66.2 (50-75) % Lymph % (Auto) 25.1 (25-40) % [place] % (Auto) 6.9 (3-14) % Eos % (Auto) 1.0 L (2-4) % Baso % (Auto) 0.8 (0-2) % Neut # (Auto) 5800 (7353-3851) /uL Lymph # (Auto) 2200 (1424-7925) /uL [place] # (Auto) 600 (0-900) /uL Eos # (Auto) 100 (0-450) /uL Baso # (Auto) 100 (0-100) /uL PT 10.8 (10.1-12.7) SECONDS INR 0.9 (0.9-1.3) APTT 32 (26.4-36.2) SECONDS Sodium 136 L (137-145) mmol/L Potassium 4.2 (3.4-5.1) mmol/L Chloride 99 (98-107) mmol/L Carbon Dioxide 27 (22-32) mmol/L BUN 16 (9-20) mg/dL Creatinine 0.90 (0.66-1.25) mg/dL Estimated GFR > 60.0 (>60) mL/min BUN/Creatinine Ratio 17.8 (6-22) Glucose 128 H (70-100) mg/dL Calcium 9.3 (8.4-10.2) mg/dL Total Bilirubin 0.5 (0.2-1.3) mg/dL AST 20 (17-59) IU/L ALT 24 (21-72) IU/L Alkaline Phosphatase 66 (38-126) U/L Total Protein 7.6 (6.3-8.2) g/dL Albumin 4.4 (3.5-5.0) g/dL Globulin 3.2 (1.7-4.1) g/dL Albumin/Globulin Ratio 1.4 (1.0-2.8) Urine RBC (0-5/HPF) Urine WBC (0-5/HPF) Urine Bacteria (None) Ur Culture Indicated? Urine Opiates Screen (Negative) Ur Oxycodone Screen (Negative) Urine Methadone Screen (Negative) Ur Barbiturates Screen (Negative) U Tricyclic Antidepress (Negative) Ur Phencyclidine Scrn (Negative) Ur Amphetamines Screen (Negative) U Methamphetamines Scrn (Negative) Ur MDMA Scrn (Ecstasy) (Negative) U Benzodiazepines Scrn (Negative) Urine Cocaine Screen (Negative) U Marijuana (THC) Screen (Negative) Ethyl Alcohol < 10 mg/dL 11/15/18 11/15/18 Range/Units 06:42 06:42 WBC (4.5-11.0) X10^3/uL RBC (4.5-5.9) X10^6/uL Hgb (13.5-17.5) g/dL Hct (41-53) % MCV (80-100) fL MCH (26-34) PG MCHC (30-36) % RDW (11.6-14.8) % Plt Count (150-400) X10^3/uL Neut % (Auto) (50-75) % Lymph % (Auto) (25-40) % [place] % (Auto) (3-14) % Eos % (Auto) (2-4) % Baso % (Auto) (0-2) % Neut # (Auto) (6194-6242) /uL Lymph # (Auto) (1058-0641) /uL [place] # (Auto) (0-900) /uL Eos # (Auto) (0-450) /uL Baso # (Auto) (0-100) /uL PT (10.1-12.7) SECONDS INR (0.9-1.3) APTT (26.4-36.2) SECONDS Sodium (137-145) mmol/L Potassium (3.4-5.1) mmol/L Chloride (98-107) mmol/L Carbon Dioxide (22-32) mmol/L BUN (9-20) mg/dL Creatinine (0.66-1.25) mg/dL Estimated GFR (>60) mL/min BUN/Creatinine Ratio (6-22) Glucose (70-100) mg/dL Calcium (8.4-10.2) mg/dL Total Bilirubin (0.2-1.3) mg/dL AST (17-59) IU/L ALT (21-72) IU/L Alkaline Phosphatase (38-126) U/L Total Protein (6.3-8.2) g/dL Albumin (3.5-5.0) g/dL Globulin (1.7-4.1) g/dL Albumin/Globulin Ratio (1.0-2.8) Urine RBC 0-1/hpf (0-5/HPF) Urine WBC 0-1/hpf (0-5/HPF) Urine Bacteria Occasional (0-1) (None) Ur Culture Indicated? Cult not indicated Urine Opiates Screen Negative (Negative) Ur Oxycodone Screen Negative (Negative) Urine Methadone Screen Negative (Negative) Ur Barbiturates Screen Negative (Negative) U Tricyclic Antidepress Negative (Negative) Ur Phencyclidine Scrn Negative (Negative) Ur Amphetamines Screen Positive H (Negative) U Methamphetamines Scrn Positive H (Negative) Ur MDMA Scrn (Ecstasy) Negative (Negative) U Benzodiazepines Scrn Negative (Negative) Urine Cocaine Screen Negative (Negative) U Marijuana (THC) Screen Negative (Negative) Ethyl Alcohol mg/dL Urine Dip Bedside Urine Glucose Negative Bedside Urine Bilirubin - Negative Bedside Urine Ketone - Negative Urine Specific [place] 1.015 Bedside Urine Occult Blood +/- Bedside Urine pH 6.0 Bedside Urine Protein - Negative Bedside Urine Urobilinogen - Negative Bedside Urine Nitrite - Negative Bedside Urine Leukocytes - Negative Esterase Point of care testing: Urine Dip Bedside Urine Glucose Negative Bedside Urine Bilirubin - Negative Bedside Urine Ketone - Negative Urine Specific [place] 1.015 Bedside Urine Occult Blood +/- Bedside Urine pH 6.0 Bedside Urine Protein - Negative Bedside Urine Urobilinogen - Negative Bedside Urine Nitrite - Negative Bedside Urine Leukocytes - Negative Esterase MDM Narrative Medical decision making narrative: Review patient's medical record. Perform my own history and physical. Patient reports a much improvement in his symptoms. He did receive lisinopril here in the emergency department. We had a discussion about blood pressure. He does have a follow-up with his primary doctor at the end of this month. We discussed the importance of taking his blood pressure at home. We discussed return precautions. Did not find any end- organ dysfunction secondary to his elevated pressure. Patient expressed understanding and agreement plan. Discharge Plan Departure Patient Disposition: Home Clinical Impression: Hypertension, Headache Discharge Date/Time: 11/15/18 08:10 Interventions: ED Discharge Assessment Last Done: 11/15/18 08:10 Activity Restrictions/Additional Instructions: *You have been diagnosed with hypertension, headache *What to do: May need blood pressure medication adjustment of please discuss this with her primary care provider *Continue to take medications as directed *Follow up with your primary care provider in 2-3 days *Return to ER if you should have weakness, numbness, tingling or any new, worsening or concerning symptoms
--- NOTE | 2018-11-15 06:57 | PC.NURSE ---
patient reports a headache with tunnel vision that [place] all of a [place] no chest pain or shortness of breath. provider aware.
[2018-11-15 07:00] LABS: Urine Amphetamines Positive (Negative); Urine Barbiturates Negative (Negative); Urine Benzodiazepines Negative (Negative); Urine Cocaine Negative (Negative); Urine MDMA Negative (Negative); Urine Methadone Negative (Negative); Urine Methamphetamines Positive (Negative); Urine Morphine/Opi cutoff 2000 Negative (Negative); Urine Oxycodone Negative (Negative); Urine Phencyclidine Negative (Negative); Urine Tetrahydrocannabinol Negative (Negative); Urine Tricyclic Antidepressant Negative (Negative)
[2018-11-15 07:18] LABS: RBC Urine 0-1/HPF (0-5/HPF)
[2018-11-15 07:19] LABS: Bacteria Urine Occasional (0-1); Culture Indicated Urine Cult Not Indicated; WBC Urine 0-1/HPF (0-5/HPF)
[2018-11-15 07:28] VITALS: BP 146/100; PULSE 74
[2018-11-15] MEDS: LISINOPRIL 10 MG TABLET PO (07:28)
[2018-11-15 08:05] VITALS: BP 156/97; PULSE 74; RESP 16; O2SAT 99
== END 2018-11-15 08:10 | disposition home or self-care (01) ==
PROVIDERS: Emergency Medicine; Emergency Provider Emergency Medicine
DX: R51 Headache (principal); I10 Essential (primary) hypertension
CPT/HCPCS: 70450; 80053; 80305; 80320; 81003; 81015; 85025; 85610; 85730; 93005; 93010; 96361; 96374; 96375; 99284; 99285; J1885; J2405